=== PATIENT | female | born 1975 | race Caucasian/White ===

== ENCOUNTER → 2022-10-27 | Outpatient (CLI) | payer OTHER ==
--- NOTE | 2022-10-30 13:13 | MM ---
Reason for Exam: Screening (asymptomatic). Baseline mammogram. Patient History: Menarche at age 13. First Full-Term at age 18. Premenopausal. Patient has history of breast feeding. Currently using Hormonal Contraceptives, starting at age 27. Last menstrual period: 10/20/2022 Risk Values: Patsy 5 year model risk: 0.6%. NCI Lifetime model risk: 7.7%. Prior Study Comparison: Patient's first Mammogram. Tissue Density: There are scattered fibroglandular densities. Findings: Analyzed By CAD. On the right, there is an area of focal asymmetry at the 9:00 position middle to posterior depth. Asymmetric density subareolar right MLO view as well. On the left, there is a large area of central nodularity at a middle depth. Further evaluation is recommended for all 3 of these areas. No suspicious calcification is seen. Overall Assessment: Incomplete: need additional imaging evaluation, BI-RAD 0 Management: Special View Mammogram of both breasts. Diagnostic Breast Ultrasound of both breasts. Additional views on the right to include spot 3-D CC, spot 3-D MLO (2 sites), and 3-D ML views. Additional views on the left to include spot 3-D CC, spot 3-D MLO, and 3-D lateral views. Whole bilateral breast ultrasounds. Particular attention to be determined based on mammographic workup. [facility] will attempt to contact patient to return for supplemental views and ultrasound if indicated. Electronically signed and approved by: Garrett Babcock M.D. Radiologist
== END | disposition home or self-care (01) ==
LOC: RADMAMWWP 13:44
PROVIDERS: ATTEND Family Medicine
DX: Z12.31 Encounter for screening mammogram for malignant neoplasm of breast (principal)
CPT/HCPCS: 77067

== ENCOUNTER → 2022-11-15 | Outpatient (CLI) | payer OTHER ==
--- NOTE | 2022-11-15 14:08 | MM ---
Reason for Exam: Additional evaluation requested from prior study. Last screening mammogram was performed less than 1 month ago. Patient History: Menarche at age 13. First Full-Term at age 18. Premenopausal. Patient has history of breast feeding. Currently using Hormonal Contraceptives, starting at age 27. Risk Values: Patsy 5 year model risk: 0.6%. NCI Lifetime model risk: 7.7%. Prior Study Comparison: 10/27/2022 Bilateral MG screening mammo w [facility], [facility]. Tissue Density: There are scattered fibroglandular densities. Findings: Analyzed By CAD. Lateral areas of focal asymmetry improve on the spot MLO and true lateral views. Some persisting underlying nodular asymmetric density on the spot CC view. Further ultrasound evaluation recommended. On the left, 3 cm masslike density 6:00 left breast middle depth persists. Other areas of density and less defined. Further ultrasound evaluation recommended. Overall Assessment: Incomplete: need additional imaging evaluation, BI-RAD 0 Management: Diagnostic Breast Ultrasound of both breasts. Laterally on the right from 8:00 to 11:00. Whole breast on the left particular attention 6:00. Electronically signed and approved by: Garrett Babcock M.D. Radiologist
--- NOTE | 2022-11-15 14:45 | USB ---
Patient History: Menarche at age 13. First Full-Term at age 18. Premenopausal. Patient has history of breast feeding. Currently using Hormonal Contraceptives, starting at age 27. Risk Values: Patsy 5 year model risk: 0.6%. NCI Lifetime model risk: 7.7%. Technique: Method: Targeted. Prior Study Comparison: 10/27/2022 Bilateral MG screening mammo w [facility], [facility]. Findings: The whole breast of the left breast, the upper outer quadrant of the right breast, the axilla of both breasts and the retroareolar of both breasts were scanned. On the right, targeted ultrasound from 8:00 to 11:00 including the subareolar region and axilla. No solid or cystic lesion or axillary lymphadenopathy is seen to correspond to the mammographic asymmetries. Six-month follow-up diagnostic right breast mammogram. On the left, whole breast ultrasound including scanning of the subareolar region and axilla. At the 6:00 position, 8 cm from the nipple, there is a large lobulated hypoechoic solid mass measuring 3.8 x 2.7 x 1.7 cm. No internal vascularity. Given posterior through transmission, a large fibroadenoma is possible. Other mass not excluded at this time. Biopsy is recommended. No other solid or cystic lesion. Overall Assessment: Suspicious, BI-RAD 4 Management: Ultrasound Core Biopsy of the left breast. Diagnostic Mammogram of the right breast in 6 months. Ultrasound-guided core needle biopsy large lobulated 6:00 left breast mass. Six-month follow-up diagnostic right breast mammogram. Results were given to the patient verbally at the time of exam. Electronically signed and approved by: Garrett Babcock M.D. Radiologist
== END | disposition home or self-care (01) ==
LOC: RADMAMWWP 13:29
PROVIDERS: ATTEND Family Medicine
DX: R92.8 Other abnormal and inconclusive findings on diagnostic imaging of breast (principal)
CPT/HCPCS: 77066

== ENCOUNTER → 2025-04-08 | Outpatient (CLI) | payer MEDICAID ==
[2025-04-08 19:39] LABS: ALT 34 U/L (8-44); AST 18 U/L (13-35); Albumin 4.1 g/dL (3.8-4.9); Albumin/Globulin Ratio 1.37 Ratio (1.60-3.17); Alkaline Phosphatase 80 U/L (41-126); Blood Urea Nitrogen 10.5 mg/dL (9.0-27.0); Calcium 9.2 mg/dL (8.7-10.3); Carbon Dioxide 20.3 mmol/L (21.6-31.8); Chloride 103 mmol/L (96-109); Chol/HDL Ratio 4.78 Ratio; Glucose 209 mg/dL (70-110); Potassium 4.1 mmol/L (3.5-5.5); Sodium 139 mmol/L (135-145); Total Bilirubin 0.2 mg/dL (0.3-1.2); Total Protein 7.1 g/dL (6.2-8.2)
[2025-04-08 20:12] LABS: Basophils # (A) 0.06 X 10*3/uL (0.00-0.10); Basophils % (A) 0.6 %; Eosinophils # (A) 0.27 X 10*3/uL (0.04-0.35); Eosinophils % (A) 2.8 %; HCT 40.7 % (37.2-46.3); HGB 13.3 g/dL (12.0-15.0); Lymphocytes # (A) 2.55 X 10*3/uL (0.90-5.00); Lymphocytes % (A) 26.7 %; MCHC 32.7 g/dL (32.0-37.0); MCV 88.9 FL (80.0-97.0); Mean Platelet Volume 11.9 FL (9.5-12.2); Monocytes # (A) 0.59 X 10*3/uL (0.20-1.00); Monocytes % (A) 6.2 %; NRBC Per 100 WBC 0 X 10*3/uL (0.00-0.01); Neutrophils # (A) 6.05 X 10*3/uL (1.80-7.70); Neutrophils % (A) 63.4 %; Platelet Count 174 X 10*3/uL (140-440); RBC 4.58 X 10*6/uL (4.10-5.20); RDW 12.3 % (11.5-14.5); WBC 9.55 X 10*3/uL (4.50-10.00)
== END | disposition home or self-care (01) ==
LOC: LABWHC1 12:38
PROVIDERS: ATTEND Internal Medicine Gastroenterology
DX: I10 Essential (primary) hypertension (principal); E11.9 Type 2 diabetes mellitus without complications; R10.11 Right upper quadrant pain
CPT/HCPCS: 36415; 80053; 80061; 82306; 82607; 82746; 83036; 85025